=== PATIENT | female | born 1930 | race Caucasian/White ===

== ENCOUNTER 2019-04-09 16:52 | Inpatient (IN) | payer OTHER ==
[~2019-04-09] VITALS: Ht 167.6 cm; Wt 95.3 kg
[~2019-04-09 16:52] MED LIST: ASPIR 8181 MG PO; GLUCOSAMINE HC500 MG PO; LISINOPRIL-HCT1 EAC1 PO; LOPRESSOR50 PO; NITROGLYCERIN0.4 MG SUBLING; NORCO 5-325 TA1 EACH PO; PLAVIX 75 MG TA75 M1 PO; SIMVASTATIN40 MG PO; UNICOMPLEX M TA1 TA1 PO
[2019-04-09 17:16] VITALS: BP 95/32
[2019-04-09] MEDS ORDERED: ARICEPT10 M1 PO (19:18)
[2019-04-09 19:19] LABS: ABSOLUTE NEUTROPHILS 6.8 thou/uL (1.4-8.2); BASOPHILS 0.4 % (0.0-2.0); EOSINOPHILS 3.8 % (0.0-3.0); HEMATOCRIT 32.7 % (37.0-47.0); HEMOGLOBIN 10.9 gm/dL (12.0-15.0); LYMPHOCYTES 4.7 % (24.0-44.0); MCH 31.1 pg (26.0-34.0); MCHC 33.3 g/dL (28.0-37.0); MCV 93.2 fL (80.0-100.0); MONOCYTES 7.9 % (1.0-8.0); PLATELET COUNT 197 thou/uL (150-400); POLYS 83.2 % (36.0-66.0); RDW 13.7 % (10.5-14.5); WBC 8.2 thou/uL (4.0-11.0)
[2019-04-09] MEDS ORDERED: PLAVIX 75 MG TA75 MG PO (19:19)
[2019-04-09] MEDS ORDERED: ELIQUIS5 MG PO (19:25)
[2019-04-09 19:26] LABS: CREATININE 1.9 mg/dL (0.6-1.0); POTASSIUM 3.6 mmol/L (3.5-5.1)
[2019-04-09 19:32] LABS: ALBUMIN 3.4 g/dL (3.4-5.0); TOTAL BILIRUBIN 0.6 mg/dL (<0.1-1.0)
[2019-04-09] MEDS ORDERED: FUROSEMIDE 20 M20 MG PO (19:39)
[2019-04-09] MEDS ORDERED: KLOR-CON 10 ER10 MEQ PO (19:40)
[2019-04-09] MEDS ORDERED: DEPAKOTE125 MG PO (19:41)
[2019-04-09] MEDS ORDERED: FLUOXETINE HCL40 MG PO (19:41)
[2019-04-09] MEDS ORDERED: PROZAC20 MG PO (19:44)
[2019-04-09 21:00] VITALS: BP 118/52
[2019-04-09 21:17] VITALS: BP 98/43
[2019-04-09 22:01] VITALS: BP 130/51
--- NOTE | 2019-04-10 01:06 | NUR ---
ASSUMED CARE OF PT FROM THE ER AT 2145HRS. PT IS ALERT BUT ONLY ORIENTED TO PERSON AND TIME. FALL PRECAUTION IN PLACE. PT WAS ORIENTED TO THE ROOM AND THE UNIT BUT NEED REINFORCEMENT. PT ABLE TO AMBULATE WITH A WALKER AND ONE ASSIST. PT IS INCT OF BOTH BOWEL AND BLADDER. DR UMANZOR WAS NOTIFIED AND ORDERS RECIEIVED AND STARTED. THE NIGHT PROGRESSED. PT WAS MORE CONFUSED. PT MOVED TO A ROOM CLOSER TO THE NURSES' STATION. LEFT VOICEMAIL FOR DR. UMANZOR FOR OTHER ODERS. WILL CONTINUE TO MONITOR.
[2019-04-10] MEDS ORDERED: MELATONIN3 M1 PO (02:11)
[2019-04-10] MEDS ORDERED: ELIQUIS5 MG PO ×2 (02:12→02:13)
[2019-04-10] MEDS ORDERED: NAMENDA 10 MG T10 MG PO (02:15)
[2019-04-10] MEDS ORDERED: DEPAKOTE125 MG PO (02:19)
[2019-04-10 03:45] VITALS: BP 146/54
[2019-04-10 04:38] LABS: CALCIUM 9.7 mg/dL (8.5-10.1); CREATININE 1.7 mg/dL (0.6-1.0); POTASSIUM 3.5 mmol/L (3.5-5.1)
[2019-04-10 04:51] LABS: HEMATOCRIT 35.2 % (37.0-47.0); HEMOGLOBIN 11.4 gm/dL (12.0-15.0); MCH 30.6 pg (26.0-34.0); MCHC 32.5 g/dL (28.0-37.0); MCV 94.3 fL (80.0-100.0); RBC 3.73 mil/uL (4.20-5.00); RDW 13.6 % (10.5-14.5); WBC 9.6 thou/uL (4.0-11.0)
[2019-04-10 10:00] VITALS: BP 122/50
--- NOTE | 2019-04-10 11:18 | NUR ---
Received awake on bed. Due medications given as prescribed, pt refused several times but after explaning and doing several attempts pt agreed. Pt confused, re-oriented from time to time. Vital signs stable. On regular diet- encouraged and assisted in eating and drinking. Incontinent of bladder and bowels- checked frequently and changed as needed. Assisted in ADLs. Pt with several episodes of falls and high risk for elopment- with sitter at bedside. With wound at R leg- dressing loose, wound seen by Dr Mccartney- dressing changed today. With D5Ns+20meqsKCL at 50cc/hr, infusing well at R wrist- re-inforced with protective wrap since pt is trying to pull IV out. Pt is on full code on the system and upon checking on pt's records by assistant coach pt is DNR- relayed to Dr Mccartney during his rounds today and changed pt's code status to NO CODE as ordered by Dr Mccartney. EKG and portable xray done; a/w for ECHO and specimen for urinalysis, OT/PT Evaluation. Pt became very agitated before lunch time, PRN haldol given as prescribed.
--- NOTE | 2019-04-10 12:25 | EKG ---
[address] [address] ELECTROCARDIOGRAM REPORT Name: GENTRY CHAU Room #: 451-P ADM IN M.R.#: [id number] Admission: 04/09/19 Attend Phys: Katie Mccartney MD Discharge: Date of : [birth year] Report #: [id number] THIS REPORT FOR: //name// [facility] Test Date: 2019-04-10 Test Time: 09:36:47 Pat Name: GENTRY CHAU Department: Room: [facility] Gender: F Options Trader: MARILIN : 1930 Requested By: Katie Mccartney Order Number: [id number] MD: Jason Babin Measurements Intervals [place] Rate: 74 P: 67 IL: 219 QRS: 104 QRSD: 135 T: 27 QT: 402 QTc: 446 Interpretive Statements Sinus rhythm Borderline prolonged IL interval IVCD, consider atypical RBBB Anteroseptal infarct, age indeterminate Compared to ECG 04/10/2016 18:01:08 Myocardial infarct finding now present Electronically Signed On 04-10-2019 12:25:33 BLAST FURNACE OPERATOR by Jason Babin [email or web address] <ELECTRONICALLY SIGNED> By: Jason Babin MD 04/10/19 1225 0936 [id number] Jason Babin MD /DAVE
[2019-04-10 14:20] LABS: URINE BILIRUBIN NEGATIVE (Negative); URINE BLOOD NEGATIVE (Negative); URINE CLARITY CLEAR; URINE COLOR YELLOW; URINE GLUCOSE-RANDOM* NEGATIVE (Negative); URINE KETONES NEGATIVE (Negative); URINE NITRITE-REFLEX NEGATIVE (Negative); URINE PROTEIN (DIPSTICK) NEGATIVE (Negative); URINE UROBILINOGEN 0.2 E.U./dl (0.2-1.0)
[2019-04-10 14:22] LABS: URINE LEUKOCYTES-REFLEX 1+ (Negative)
[2019-04-10 14:38] LABS: SQUAMOUS 4-10 Moderate /LPF (0-3)
[2019-04-10 14:39] LABS: CASTS None Seen /LPF (None Seen); CRYSTALS None Seen /LPF (None Seen); URINE WBC-REFLEX 0-5 Rare /HPF (0-5)
[2019-04-10 14:40] LABS: URINE RBC None Seen /HPF (0-2)
[2019-04-10 14:41] LABS: BACTERIA-REFLEX 1-9 Few /HPF (None Seen)
[2019-04-10 17:20] VITALS: BP 150/44
[2019-04-10 19:27] VITALS: BP 134/40
--- NOTE | 2019-04-11 04:36 | NUR ---
ASSUMED CARE AROUND 1930. ALERT AND ORIENTED TO HER NAME. ABLE TO FOLLOW SIMPLE DIRECTIONS SUCH OPENING MOUTH FOR MEDICATION. HOWEVER, PT CONFUSED AND UNABLE TO ANSWER ANY QUESTIONS AT THIS TIME. PT IS RESTLESS AND SCREAMS WHEN NURSING TRIES TO PROVIDE CARE AT THIS TIME. SITTER AT BEDSIDE FOR PT SAFETY. NO S/S ACUTE DISTRESS NOTED OR REPORTED AT THIS TIME. WILL CONT TO MONITOR FOR ANY CHANGES IN CONDITION.
[2019-04-11 05:19] LABS: BASOPHILS 0.5 % (0.0-2.0); EOSINOPHILS 1.9 % (0.0-3.0); HEMATOCRIT 27.3 % (37.0-47.0); LYMPHOCYTES 5.1 % (24.0-44.0); MCH 30.7 pg (26.0-34.0); MONOCYTES 8.3 % (1.0-8.0); PLATELET COUNT 161 thou/uL (150-400); POLYS 84.2 % (36.0-66.0); RBC 2.94 mil/uL (4.20-5.00); RDW 13.5 % (10.5-14.5); WBC 7.1 thou/uL (4.0-11.0)
[2019-04-11 05:34] LABS: CALCIUM 9.1 mg/dL (8.5-10.1); CREATININE 1.5 mg/dL (0.6-1.0); POTASSIUM 3.5 mmol/L (3.5-5.1)
[2019-04-11 07:49] VITALS: BP 157/56
--- NOTE | 2019-04-11 08:28 | H ---
[facility] [place] [address] HISTORY AND PHYSICAL Name: GENTRY CHAU Room #: 451-P [facility] IN ..#: [id number] Admission: 04/09/19 Attend Phys: Katie Mccartney MD Discharge: Date of : [birth year] Report #: [id number] THIS REPORT FOR: //name// CC: Katie Mccartney DATE OF SERVICE: 04/09/2019 HISTORY OF PRESENT ILLNESS: The patient is an 89-year-old female who was brought to the Emergency Room with altered mental status and increasing redness and discharge from her right lower extremity. The patient has been having this swelling going on for the last 6-8 weeks. The patient had an ultrasound of the neck that was negative for deep vein thrombosis. The patient was admitted to the hospital with the diagnosis of cellulitis. PAST MEDICAL HISTORY: Significant for dementia. The patient had a history of myocardial infarction about 12 years ago, status post stent placement. The patient had a history of hyperlipidemia, hypertension, vitamin D deficiency. The patient had a history of right knee replacement, bladder sling and the possibility of atrial fibrillation for which she is on Eliquis. MEDICATIONS: The patient's medications were reviewed and reconciled. ALLERGIES: No known drug allergies. SOCIAL HISTORY, FAMILY HISTORY, REVIEW OF SYSTEMS: Unobtainable because of the patient's confusion. PHYSICAL EXAMINATION: GENERAL: The patient is alert. The patient is very confused. She is not in any distress. The patient denies any pain. VITAL SIGNS: The patient's temperature on arrival to the hospital was 98.1, pulse 63, respirations 18, blood pressure 95/32. Last blood pressure is 146/54. Last temperature was 99.6. HEAD AND NECK: No icterus sclerae. No drainage from the nose or ears. The patient has wet mucous membranes. Neck was supple, no lymphadenopathy. LUNGS: Clear to auscultation with good air entry bilaterally. CARDIAC: S1, S2. ABDOMEN: Benign. Bowel sounds were positive. EXTREMITIES: The patient has minimal erythema on the left lower extremity. The patient has extensive swelling of the right lower extremity with erythema below the knee with open dried blisters. DIAGNOSTIC STUDIES AND LABORATORY DATA: The patient's CBC with diff showed white count of 8.2, hemoglobin 10.9, hematocrit 32.7, platelet count 192, neutrophils are 83%. The patient's CRP is 81. The patient's comprehensive metabolic panel showed a sodium of 139, potassium 3.6, chloride 102, bicarbonate [address] [address] HISTORY AND PHYSICAL Name: GENTRY CHAU Room #: 451-P [facility]#: [id number] Admission: 04/09/19 Attend Phys: Katie Mccartney MD Discharge: Date of : [birth year] Report #: [id number], BUN 39, creatinine 1.9, AST 11, ALT 18. Lactic acid is 1.1. Venous Doppler ultrasound repeated in the Emergency Room was negative for DVT. ESR was 55. X-ray of the tibia and fibula on the right side showed diffuse right lower extremity swelling, but besides that, no bony abnormality. Repeated basic metabolic panel showed a sodium of 141, potassium 3.5, chloride 103, bicarbonate 27, BUN 38, creatinine 1.7, glucose 115. The patient's repeated CBC showed white count of 9.6, hemoglobin 11.4, hematocrit 35.2, platelet count 188. ASSESSMENT AND PLAN: 1. Cellulitis of the right lower extremity. 2. Dementia. 3. Altered mental status. 4. Possible atrial fibrillation. The patient was admitted to the hospital with the above-mentioned diagnoses. I will go ahead and resume her medications. I will start the patient on Rocephin and vancomycin for now. We will continue to monitor the patient's labs very closely. The patient was admitted also with acute kidney injury with some improvement of her renal function. The patient to continue her anticoagulation. We will continue to monitor the patient. <ELECTRONICALLY SIGNED> By: Katie Mccartney MD 04/11/19 0828 0916 1005 Katie Mccartney MD /nt
--- NOTE | 2019-04-11 17:15 | NUR ---
Assumed patient care at 0715. Patient is pleasantly confused. Vital signs are stable. IV is in the right forearm; it is covered with Coban to keep patient from trying to remove it. Client has been calm until this afternoon. She is becoming anxious and displaying owning behaviors at this time. Dr Mckenzie just gave telephone orders for Seroquel 12.5 TID, PRN agitation. Will continue to monitor this patient and give medication as it becomes available. No other concerns at this time.
[2019-04-11 19:09] VITALS: BP 154/52
--- NOTE | 2019-04-12 04:45 | NUR ---
ASSUMED CARE AROUND 1914. ALERT AND ORIENTED TO SELF. SITTER AT BEDSIDE. C/O BLE PAIN. NEW ORDER RECEIVED AND ADMIN. VANC TROUGH COMPLETED AND DOSE ADJUSTED PER RX. NO S/S ACUTE DISTRESS NOTED OR REPORTED AT THIS TIME. WILL CONT TO MONITOR FOR ANY CHANGES IN CONDITION.
[2019-04-12 05:00] LABS: ABSOLUTE NEUTROPHILS 5.7 thou/uL (1.4-8.2); BASOPHILS 0.7 % (0.0-2.0); EOSINOPHILS 5.6 % (0.0-3.0); HEMATOCRIT 28.6 % (37.0-47.0); HEMOGLOBIN 9.6 gm/dL (12.0-15.0); LYMPHOCYTES 5.9 % (24.0-44.0); MCHC 33.4 g/dL (28.0-37.0); MCV 92.6 fL (80.0-100.0); MONOCYTES 9.3 % (1.0-8.0); PLATELET COUNT 182 thou/uL (150-400); POLYS 78.5 % (36.0-66.0); RBC 3.09 mil/uL (4.20-5.00); RDW 13.2 % (10.5-14.5); WBC 7.3 thou/uL (4.0-11.0)
[2019-04-12 05:03] LABS: CALCIUM 9.6 mg/dL (8.5-10.1); CREATININE 1.4 mg/dL (0.6-1.0); POTASSIUM 3.1 mmol/L (3.5-5.1)
[2019-04-12 07:41] VITALS: BP 136/58
--- NOTE | 2019-04-12 10:01 | 2DMMODE ---
[facility] [address] [place] [address] 2 D/M-MODE ECHOCARDIOGRAM Name: CHAUGENTRY S Room #: 451-P [facility] IN ..#: [id number] Admission: 04/09/19 Attend Phys: Katie Mccartney MD Discharge: Date of : [birth year] Report #: [id number] THIS REPORT FOR: //name// APPROVED REPORT Study performed: 04/12/2019 08:56:03 EXAM: Comprehensive 2D, Doppler, and color-flow Echocardiogram Patient Location: Bedside Room #: [facility] Status: routine BSA: 2.02 HR: 52 bpm BP: 136/58 mmHg Rhythm: Bradycardia Other Information Study Quality: Technically Limited Technically limited study due to inability to position patient. Indications CAD Hypertension/HDD Edema 2D Dimensions IVC: 25.00 mm Volumes Left Atrial Volume (Systole) Single Plane 4CH: 75.63 mL Single Plane 2CH: 81.06 mL LA ESV Index: 48.00 mL/m2 Aortic Valve AoV Peak Arnaldo.: 1.67 m/s AO Peak Gr.: 11.22 mmHg LVOT Max P.50 mmHg LVOT Max V: 1.17 m/s Mitral Valve E/A Ratio: 0.9 MV Decel. Time: 213.08 ms MV E Max Arnaldo.: 1.17 m/s MV A Arnaldo.: 1.26 m/s MV PHT: 61.79 ms [facility] [address] [place] [address] 2 D/M-MODE ECHOCARDIOGRAM Name: GENTRY CHAU Room #: 451-P [facility] IN ..#: [id number] Admission: 04/09/19 Attend Phys: Katie Mccartney MD Discharge: Date of : [birth year] Report #: [id number] IVRT: 106.11 ms Pulmonary Valve PV Peak Arnaldo.: 0.95 m/s PV Peak Gr.: 3.60 mmHg Pulmonary Vein P Vein S: 0.51 m/s P Vein A: 0.24 m/s P Vein D: 0.24 m/s P Vein A Dur.: 87.7 msec P Vein S/D Ratio: 2.13 Tricuspid Valve TR Peak Arnaldo.: 3.49 m/s TR Peak Gr.: 48.65 mmHg PA Pressure: 64.00 mmHg Left Ventricle The left ventricle is normal size. There is normal LV segmental wall motion. There is normal left ventricular wall thickness. The left ventricular systolic function is normal. The left ventricular ejection fraction is within the normal range. LVEF is 55-60%. Grade I - abnormal relaxation pattern. Right Ventricle Right ventricle is at the upper limits of normal. The right ventricular systolic function is normal. Atria Left atrium is dilated. Right atrium is at the upper limits of normal. Aortic Valve The aortic valve is normal in structure. No aortic regurgitation is present. There is no aortic valvular stenosis. Mitral Valve The mitral valve is normal in structure. Trace mitral regurgitation. No evidence of mitral valve stenosis. Tricuspid Valve The tricuspid valve is normal in structure. There is mild tricuspid regurgitation. Estimated PAP 64 mmHg. There is moderate pulmonary hypertension. Pulmonic Valve The pulmonary valve is normal in structure. There is no pulmonic valvular regurgitation. [facility] [address] [place] [address] 2 D/M-MODE ECHOCARDIOGRAM Name: GENTRY CHAU Room #: 451-P [facility] IN [facility]#: [id number] Admission: 04/09/19 Attend Phys: Katie Mccartney MD Discharge: Date of : [birth year] Report #: [id number] Great Vessels The aortic root is normal in size. The inferior vena cava is dilated with no inspiratory collapse. Pericardium There is no pericardial effusion. <Conclusion> The left ventricle is normal size. LVEF is 55-60%. Left atrium is dilated. Right atrium is at the upper limits of normal. The aortic valve is normal in structure. The mitral valve is normal in structure. Trace mitral regurgitation. The tricuspid valve is normal in structure. There is mild tricuspid regurgitation. Estimated PAP 64 mmHg. There is moderate pulmonary hypertension. The pulmonary valve is normal in structure. There is no pericardial effusion. <ELECTRONICALLY SIGNED> By: Rex Madden MD 04/12/19 1000 1000 Aneta Madden MD /RICARDO
--- NOTE | 2019-04-12 10:28 | NUR ---
PT ADMITTED RELATED TO CELLULITIS. CM REVIEWED CHART AND SPOKE WITH CARE TEAM. CM CALLED AND SPOKE WITH PT'S DTR THIS DAY. SHE INDICATED THAT PT RESIDES IN [place] AT [facility] AND THAT PT HAD BEEN ON SERVICE WITH [facility] HEALTH AND FITNESS INSTRUCTOR. DTR INDICATED PT USED A 4WW TO ASSIST WITH MOBILITY HEALTH AND FITNESS INSTRUCTOR. PT'S DTR INDICATED THAT PT NEEDED ASSISTANCE WITH [facility] FITNESS INSTRUCTOR. DTR INDICATED THAT SHE IS RECEPTIVE TO POST ACUTE CARE STAY UPON DC IF NEEDED. CM TO FOLLOW INDICATED WITH DC PLANNING.
--- NOTE | 2019-04-12 14:13 | NUR ---
CM SPOKE WITH SADIE IN ADMISSIONS AT [facility] AND SHE INDICATED THAT SHE FELT PT WOULD BENEFIT FROM POST ACUTE CARE STAY. CM INDICATED THAT OT IS RECOMMENDING POST ACUTE AND PT IS STATING THAT PT COULD LIKELY RETURN BACK TO [place] WITH HH. CM SENT REFERRAL OVER THE [facility] FOR REVIEW AND SUBMISSION FOR POSSIBLE INSURANCE AUTH FOR POST ACUTE CARE STAY. CM TO FOLLOW INDICATED WITH DC PLANNING.
[2019-04-12 17:03] VITALS: BP 154/83
--- NOTE | 2019-04-12 17:03 | NUR ---
Patient continues to be pleasantly confused until the afteroon, when she becomes anxious and can become angry. She responds well to calm and soothing staff members and can be re-directed with a newspaper, magazine or soothing music on the television. Patient enjoys Musical's as well. Patient continues with a Sitter for her safety, as she will get up and attempt to leave, thinking that she has somewhere to be. Wound Care came and assessed Cellulitis, re-dressed right lower leg. Dressing is clean, dry and intact. Vital signs are stable; she does not appear to be in any distress. Seroquel was given (12.5mg po prn) with little improvement. Vital signs are stable. Appetite is poor. Will continue to monitor.
[2019-04-12 19:04] VITALS: BP 148/54
--- NOTE | 2019-04-13 02:51 | NUR ---
PATIENT AOX1 FORGETFUL AND CONFUSED THIS SHIFT.PATIENT AMBULATES WITH STEADY GAITS AND A WALKER. PATIENT NEEDS MINIMUM ASSISTAANCE WITH ADL, BED MOBILITY, TRANSFER AND TOILETING. PATIENT IS ON 1:1 FOR SAFETY. PATIENT TAKES MEDS WITH A LOT OF ENCOURAGEMENT. PATIENT HALLUCINATES AT TIMES. PATIENT RLE HAS KEMI WRAP, DRESSING IS C/D/I.PATIENT WAS GETTING RESTLESS PRN SEROQUEL GIVEN PER DR. ORDER.PATIENT DENIED PAIN OR DISCOMFORT. PATIENT IN BED ASLEEP AT THIS TIME BREATHING REGULAR AND UNLABOURED.
[2019-04-13 05:28] LABS: CALCIUM 9.6 mg/dL (8.5-10.1); CREATININE 1.3 mg/dL (0.6-1.0); POTASSIUM 3.9 mmol/L (3.5-5.1)
[2019-04-13 05:34] LABS: ABSOLUTE NEUTROPHILS 4.9 thou/uL (1.4-8.2); BASOPHILS 0.6 % (0.0-2.0); EOSINOPHILS 7.3 % (0.0-3.0); HEMATOCRIT 30.9 % (37.0-47.0); HEMOGLOBIN 10.3 gm/dL (12.0-15.0); LYMPHOCYTES 8.1 % (24.0-44.0); MCH 30.5 pg (26.0-34.0); MCHC 33.2 g/dL (28.0-37.0); MCV 92.1 fL (80.0-100.0); MONOCYTES 9.8 % (1.0-8.0); PLATELET COUNT 206 thou/uL (150-400); POLYS 74.2 % (36.0-66.0); RBC 3.36 mil/uL (4.20-5.00); RDW 13.1 % (10.5-14.5); WBC 6.6 thou/uL (4.0-11.0)
[2019-04-13 08:41] VITALS: BP 144/64
--- NOTE | 2019-04-13 10:27 | NUR ---
Received awake on bed. Due medications given as prescribed, able to swallow meds w/o difficulty. A+O to person, confused, can sometimes be impulsive- re-oriented from time to time, with sitter at bedside. Assisted in ADLs. On and off incontinence, checked frequently, changed as needed. On regular diet- tolerating well; no nausea, no vomiting and no abdominal pain noted. With SL at R FA- intact. With cellulitis at R LE- dressing intact, changed this morning 04/13- charted. Kept extremities elevated. Falls bundle in place. As per Dr Mccartney, pt for possible discharge tomorrow, asked supervisor housecleaner Sulma and Charge nurse Ellen if to d/c sitter, as per Sulma to d/c sitter 24 hrs prior to discharge; Sitter discontinued at 10am. IV antibiotics shifted to oral by Dr Mccartney.
--- NOTE | 2019-04-13 11:16 | NUR ---
WOUND CARE CONSULT pt up in chair, alert but confused, cooperative, cellulitis right lower leg, erythema present w/ scattered crusted wounds, no drainage, +1 edema, denies pain, DP pulse +2, no wounds left lower leg, +2 edema, weak DP pulse but difficult to fully assess due to edema RECOMMENDATIONS cleanse right lower leg w/ ns or wound cleanser, apply xeroform gauze, abd pad, kerlix, maria m wrap lightly, 3x week, light compression tubigrip to left lower leg, hospital staff pharmacist informed, encouraged to elevate legs more, will order low air pump to bed
--- NOTE | 2019-04-13 14:45 | NUR ---
DISCHARGE PLANNING. PATIENT RESIDES AT [facility]. POST ACUTE RECOMMENDED AT DISCHARGE. UPDATED CLINICAL INFORMATION FAXED TO [facility] SKILLED PHONE CIRCUIT OPERATOR. ANTICIPATED DISCHARGE PLANNED FOR TOMORROW. CALL PLACED TO SADIE TO NOTIFY. FOLLOWING.
--- NOTE | 2019-04-13 15:16 | NUR ---
CM ASKED DC SILVICULTURIST TO FAX UPDATED THERAPY NOTES TO [facility] TO SUBMIT FOR SKILLED AUTH. CM TO FOLLOW INDICATED WITH DC PLANNING.
--- NOTE | 2019-04-13 18:37 | NUR ---
Received pt from [facility], pt is pleasantly confused would always be looking for her kids and states that her mother is also here and would like to see her. Pt has dementia and it is evident. Low air loss matress maintained, pt is able to get up and walk around the room with minimal assists. POC followed no signs or verbalizations of distress have been noted. Endorsed to the night nurse.
[2019-04-13 20:26] VITALS: BP 164/70
--- NOTE | 2019-04-14 03:17 | NUR ---
ASSUMED PT CARE ON 04/13/19. PT IS A&OX1 WITH CONFUSION. PT HAS REGULAR HEART SOUNDS, LUNGS ARE CLEAR, BREATH SOUNDS ARE WHEEZY AFTER EXERTION. PT IS INCONTINENT BOWEL AND BLADDER. FALL BUNDLE IN PLACE. PT TAKES EVENING MEDS ONE BY ONE WITH WATER. PT IS IMPULSIVE AND CLIMBS OUT OF THE BED. PT IS AWAKE TALKING IN HER ROOM. WHEN I OFFERED HER WATER SHE REFUSED. PT CONTINUES TO TRY TO GET OUT OF THE BED. WILL CONTINUE TO MONITOR.
[2019-04-14 05:53] LABS: ABSOLUTE NEUTROPHILS 5.5 thou/uL (1.4-8.2); BASOPHILS 0.9 % (0.0-2.0); EOSINOPHILS 4.7 % (0.0-3.0); HEMATOCRIT 32.2 % (37.0-47.0); HEMOGLOBIN 10.5 gm/dL (12.0-15.0); LYMPHOCYTES 8.1 % (24.0-44.0); MCH 30.5 pg (26.0-34.0); MCHC 32.7 g/dL (28.0-37.0); MCV 93.1 fL (80.0-100.0); PLATELET COUNT 242 thou/uL (150-400); POLYS 75.3 % (36.0-66.0); RBC 3.46 mil/uL (4.20-5.00); RDW 13.2 % (10.5-14.5); WBC 7.3 thou/uL (4.0-11.0)
[2019-04-14 06:43] LABS: CALCIUM 10.5 mg/dL (8.5-10.1); CREATININE 1.4 mg/dL (0.6-1.0); POTASSIUM 4.2 mmol/L (3.5-5.1)
[2019-04-14 07:15] VITALS: BP 144/54
[2019-04-14] MEDS ORDERED: DOXYCYCLINE HYC50 MG PO (07:32)
[2019-04-14] MEDS ORDERED: ELIQUIS2.5 MG PO (07:33)
--- NOTE | 2019-04-14 09:44 | NUR ---
SW reviewed chart and spoke with nursing. Pt was transferred to [facility] yesterday and is medically stable for discharge to [facility]. Discharge orders/summary completed. Awaiting insurance authorization. SW asked therapy to see pt early today. program planner to fax clinical/therapy updates when available. Chart copy ordered. MARCI is following to assist as needed with discharge planning.
--- NOTE | 2019-04-14 10:55 | NUR ---
WOUND CARE FOLLOW UP; THE PATIENT IS POSSIBLY DISCHARGING TODAY. THE WOUND TO THE RIGHT MEDIAL LE HAS NON VIABLE TISSUE IN THE WOUND BED. THE PERIWOUND HAS SOME ERYTHEMA. THE LATERAL SIDE HAS SCABS AND S/S OF PREVIOUS INJURY. MILD TO MODERATE DRAINAGE NOTED. RECOMMENDATIONS; D/C ORDERS FOR M/W/F PRN DRESSING CHANGES WITH ABD, KERLIX AND KEMI WRAP. DISCUSSED WITH GULSHAN
[2019-04-14 14:02] VITALS: BP 152/60
--- NOTE | 2019-04-14 18:33 | NUR ---
PT IS AOX1, VSS, NO C/O PAIN. PT IS VERY FORGETFUL, TOLERATING DIET WELL AFTER STAFF SETS HER UP. DRESSING CHANGED ON RIGHT LEG BY WOUND CARE NURSE. DRESSING REMAINS C/D/I. RIGHT FOREARM IV PATENT/SL. CALL LIGHT IN REACH/PERSONAL ITEMS. WILL CONTINUE TO MONITOR PT.
[2019-04-14 20:00] VITALS: BP 170/85
[2019-04-15 02:12] VITALS: BP 162/69
--- NOTE | 2019-04-15 05:17 | NUR ---
PATIENT ALERT AND ORIENTED TO PERSON ONLY. ANXIOUS, POARANOID. THOUGHT THE NURSES WERE TRYING TO PUT SOMETHING ON HER THAT DID NOT NEED TO BE THERE AND WERE TRYING TO PULL HER ARMS OFF WHEN THEY WERE NOT BEING TOUCHED. INC OF BLADDER. REACHING FOR THINGS IN THE AIR THAT WERE NOT THERE. BP UP, RETAKEN AROUND 0210. DOWN SOME. WILL RETAKE AT 0600. DOES NOT LIKE TO TAKE MEDS. MEDS NEED TO BE CRUSHED AND PUT IN SOMETHING. HAS A HABIT OF SPITTING THEM OUT IF NOT WATCHED. SLEPT MOST OF NIGHT. DENIES PAIN.
[2019-04-15 07:26] VITALS: BP 155/61
[2019-04-15 10:58] VITALS: BP 153/61
--- NOTE | 2019-04-15 13:51 | NUR ---
DISCHARGE NOTE: SW reviewed chart and spoke with nursing and attending physician. Pt is medically stable for discharge to [facility] today. Insurance authorization obtained. [facility] to arrange transportation. planner internship to fax discharge orders/summary and notify family. Nursing to call report. Chart copy requested. No additional SW needs identified at this time, but is available to assist should needs arise.
== END 2019-04-15 14:43 | DRG 602 ==
LOC: ER 16:52 → 4W 20:17 → EROBS 20:17 → 4W 21:37 → 4N 04-13 16:26
PROVIDERS: Emergency Medicine; ADMIT Internal Medicine
DX: L03.115 Cellulitis of right lower limb (principal); N17.0 Acute kidney failure with tubular necrosis; Z96.651 Presence of right artificial knee joint; F03.90 Unspecified dementia, unspecified severity, without behavioral disturbance, psychotic disturbance, mood disturbance, and anxiety; I12.9 Hypertensive chronic kidney disease with stage 1 through stage 4 chronic kidney disease, or unspecified chronic kidney disease; E78.5 Hyperlipidemia, unspecified; I48.91 Unspecified atrial fibrillation; N18.9 Chronic kidney disease, unspecified; I25.2 Old myocardial infarction; Z95.5 Presence of coronary angioplasty implant and graft
CPT/HCPCS: 10040; 10091